=== PATIENT | male | born 1965 | race Caucasian/White ===

== ENCOUNTER 2024-06-14 09:56 | Emergency (ER) | payer SELFPAY ==
--- NOTE | 2024-06-14 10:32 | ED Physician Documentation ---
PD HPI ABD PAIN - Stated complaint Stated Complaint: LT FLANK PX - Chief complaint Chief Complaint: Abd Pain - History obtained from History obtained from: Patient - History of Present Illness Timing - onset: How many months ago (pt with 2 abd symptoms, one for 2-3 months in upper abd/epigastric area. The outher left mid abd insce yeserday that feels c/w diverticulitis to him.) Timing - details: Gradual onset, Still present, Waxing and waning Quality: Cramping, Aching, Pain Associated symptoms: Nausea, Constipation. No: Fever, Vomiting, Diarrhea PD PAST MEDICAL HISTORY - Past Medical History GI: Ulcers, Diverticulitis : Kidney stones - Past Surgical History Past Surgical History: Yes HEENT: Tonsil/Adenoidectomy - Present Medications Home Medications: Ambulatory Orders Medication Instructions Recorded Confirmed Amox/Clav 875/125 [Augmentin] 1 each PO Q12H #14 tablet 06/14/24 Lansoprazole [Prevacid] 30 mg PO DAILY 06/14/24 06/14/24 Sucralfate [Carafate] 1 gm PO ACHS 7 Days #280 ml 06/14/24 - Allergies Allergies/Adverse Reactions: Allergies Allergy/AdvReac Type Severity Reaction Status Date / Time Iodinated Contrast Media Allergy Unknown Verified 06/14/24 10:11 - Social History Does the pt smoke?: No Smoking Status: Never smoker Does the pt drink ETOH?: No Does the pt have substance abuse?: No PD ED PE NORMAL - General General: Alert and oriented X 3, No acute distress (not with degree of pain, but he very anxious about having dverituclitis again after dozenyears. ), Well developed/nourished - Neck Neck: Supple, no meningeal sign, No adenopathy - Cardiac Cardiac: RRR, No murmur - Respiratory Respiratory: No respiratory distress, Clear bilaterally - Abdomen Abdomen: Normal bowel sounds, Soft, Non distended, No organomegaly, Other (carrie with minimal guarding left abd. No tenderness in epigastric area. ) Results - Vitals Vitals: Vital Signs - 24 hr 06/14/24 06/14/24 06/14/24 10:05 12:15 14:00 Temperature 36.6 C Heart Rate 112 H 85 81 Respiratory 16 16 16 Rate Blood Pressure 163/97 H 153/82 H 143/96 H O2 Saturation 99 98 98 Oxygen O2 Source Room air - Labs Labs: Laboratory Tests 06/14/24 06/14/24 06/14/24 11:15 11:15 12:23 WBC 13.6 H RBC 5.26 Hgb 16.2 Hct 48.5 MCV 92.2 MCH 30.8 MCHC 33.4 RDW 12.7 Plt Count 271 MPV 11.5 H Neut # (Auto) 11.5 H Lymph # (Auto) 1.1 L Bibb # (Auto) 0.9 Eos # (Auto) 0.0 Baso # (Auto) 0.0 Absolute Nucleated RBC 0.00 Nucleated RBC % 0.0 Sodium 137 Potassium 3.9 Chloride 101 Carbon Dioxide 25 Anion Gap 11.0 BUN 9 Creatinine 0.7 Estimated GFR (MDRD) 116 Glucose 122 H Calcium 9.6 Total Bilirubin 1.2 H AST 11 ALT 13 Alkaline Phosphatase 113 Total Protein 7.1 Albumin 4.7 Globulin 2.4 Albumin/Globulin Ratio 2.0 Lipase < 10 L Urine Color DARK YELLOW Urine Clarity CLEAR Urine pH 6.5 Ur Specific [place] 1.010 Urine Protein NEGATIVE Urine Glucose (UA) NEGATIVE Urine Ketones >=80 H Urine Occult Blood NEGATIVE Urine Nitrite NEGATIVE Urine Bilirubin SMALL H Urine Urobilinogen 0.2 (NORMAL) Ur Leukocyte Esterase NEGATIVE Ur Microscopic Review NOT INDICATED Urine Culture Comments NOT INDICATED - Rads (name of study) abd/pelvic CT Relevant Findings:: Prelim report reviewed (acute uncomplicated diverticulitits descending colon. ), EMP independent interpretation of test PD Medical Decision Making - ED course Complexity details: reviewed results (has left abd pain c/w diverticulitis, but had not had it for 10 years. But the upper/epigastric area discomfort for months is different and sounds gastritis/ulcer like. Given duration, consider h.pylori as possible and can get sllot test. Blood tests no longer recommeded. ), considered differential (current left abd pain c/w his prior diverticulitis. Does not have peritoneal signs on exam. Upper abd pain for 2-3 months, and mproved with Pepcid the past week. ), d/w patient Departure - Departure Disposition: 01 Home, Self Care Clinical Impression: Upper abdominal pain, Left sided abdominal pain, Acute diverticulitis Condition: Stable Record reviewed to determine appropriate education?: Yes Prescriptions: Amox/Clav 875/125 [Augmentin] 1 each PO Q12H #14 tablet Sucralfate [Carafate] 1 gm PO ACHS 7 Days #280 ml Comments: Continue with the Prevacid. I would add a medication to coat the stomach several times daily as your symptoms sound likely gastritis or ulcer. This is called sacral fate and I wrote a prescription. Antacids if needed as well. Given the duration of the symptoms, I would be wondering about a infection in the stomach lining called Helicobacter pylori. This is tested for in a stool test. I wrote a prescription note for that. You could bring the stool sample to the one of the walk-in clinics or such to drop out the lab. In addition your left-sided pain acutely now is uncomplicated diverticulitis. [place] food to initially and mostly liquid diet for a day or 2. Augmentin twice daily for a week. Add Tylenol 500 to 650 mg 4 times daily if needed for pains. Follow-up if not improved well over the next several days to week or so. I sent your prescription to [facility] pharmacy. Forms: PCP List Discharge Date/Time: 06/14/24 14:25
[2024-06-14] MEDS ORDERED: iohexoL-300 100 ML VIAL ONE (11:10)
[2024-06-14 11:19] LABS: BASOPHILS % (AUTO) 0.1 %; EOSINOPHILS % (AUTO) 0.1 %; HCT - HEMATOCRIT 48.5 % (42.0-52.0); HGB - HEMOGLOBIN 16.2 g/dL (14.0-18.0); LYMPHOCYTES # (AUTO) 1.1 10^3/uL (1.5-3.5); MEAN CORPUSCULAR HEMOGLOBIN 30.8 pg (27.0-31.0); MEAN CORPUSCULAR HGB CONC 33.4 g/dL (32.0-36.0); MEAN CORPUSCULAR VOLUME 92.2 fL (80.0-94.0); MEAN PLATELET VOLUME 11.5 fL (7.4-11.4); MONOCYTES # (AUTO) 0.9 10^3/uL (0.0-1.0); MONOCYTES % (AUTO) 6.8 %; NEUTROPHILS # (AUTO) 11.5 10^3/uL (1.5-6.6); NEUTROPHILS % (AUTO) 84.8 %; PLT - PLATELET COUNT 271 10^3/uL (130-450); RED BLOOD COUNT 5.26 10^6/uL (4.70-6.10); RED CELL DISTRIBUTION WIDTH 12.7 % (12.0-15.0); WHITE BLOOD COUNT 13.6 x10^3/uL (4.8-10.8)
[2024-06-14] MEDS: KETOROLAC 15 MG/ML VIAL IVP STA (11:23)
[2024-06-14] MEDS: SODIUM CHLORIDE 0.9% 1,000 ML IV STA (11:23)
[2024-06-14 11:34] LABS: ALBUMIN 4.7 g/dL (3.2-5.5); ALKALINE PHOSPHATASE 113 IU/L (42-121); ALT ALANINE AMINOTRANSFERASE 13 IU/L (10-60); AST ASPARTATE AMINOTRANSFERASE 11 IU/L (10-42); BILIRUBIN,TOTAL 1.2 mg/dL (0.2-1.0); BUN - BLOOD UREA NITROGEN 9 mg/dL (6-20); CALCIUM 9.6 mg/dL (8.5-10.3); CARBON DIOXIDE - CO2 25 mmol/L (21-32); CHLORIDE 101 mmol/L (101-111); CREATININE 0.7 mg/dL (0.6-1.3); GFR - MDRD 116 (>89); GLUCOSE 122 mg/dL (74-104); LIPASE < 10 U/L (11-82); POTASSIUM 3.9 mmol/L (3.5-4.5); SODIUM 137 mmol/L (135-145); TOTAL PROTEIN 7.1 g/dL (6.4-8.9)
[2024-06-14 12:29] VITALS: O2SAT 98
[2024-06-14 12:34] LABS: BILIRUBIN,URINE SMALL (NEGATIVE); CLARITY,URINE CLEAR (CLEAR); GLUCOSE, URINE (UA) NEGATIVE (NEGATIVE); KETONES,URINE (UA) >=80 mg/dL (NEGATIVE); LEUKOCYTE ESTERASE, URINE NEGATIVE (NEGATIVE); NITRITE,URINE NEGATIVE (NEGATIVE); OCCULT BLOOD,URINE NEGATIVE (NEGATIVE); PH,URINE 6.5 PH (5.0-7.5); PROTEIN,URINE NEGATIVE (NEGATIVE); UROBILINOGEN,URINE 0.2 (NORMAL) E.U./dL (NORMAL)
--- NOTE | 2024-06-14 12:58 | CT Report ---
PROCEDURE: Abdomen/Pelvis WO INDICATIONS: LLQ Abdominal pain, diverticulitis suspected TECHNIQUE: A CT scan of the abdomen and pelvis was performed without the use of intravenous contrast. Images we re recorded and evaluated at appropriate window settings. Reformats: coronal and sagittal. For radiat ion dose reduction, the following was used: automated exposure control, adjustment of mA and/or kV ac cording to patient size. COMPARISON: None. FINDINGS: Image quality: Diagnostic. Lower chest: Unremarkable. Liver: No contour-deforming mass. Gallbladder: Biliary tree: No intrahepatic or extrahepatic dilation, accounting for age. Spleen: No splenomegaly. Pancreas: No pancreatic ductal dilation. Adrenals: No adrenal nodule. Kidneys and ureters: No hydronephrosis. No contour-deforming mass. Stomach, bowel and peritoneum: No gastric or small bowel dilation. No abnormal wall thickening. No pa thologic free fluid. Diverticulosis with acute diverticulitis involving the mid descending colon with out free air or free fluid or abscess cavity. Inflammatory change in the adjacent fat. Lymph nodes: No central or retroperitoneal adenopathy. Vessels: No infrarenal aortic aneurysm. Reproductive organs: Mild prostatomegaly. Bladder: Bladder wall thickness is normal, accounting for underdistention. No calcified bladder stone s. Pelvic lymph nodes: No adenopathy by size criteria. Bones: No aggressive osseous abnormality. Other: Bilateral somewhat prominent fat-containing inguinal hernias.. IMPRESSION: 1. Acute uncomplicated diverticulitis of the mid descending colon. Prominent bilateral fat-containing inguinal hernias. Reviewed by: Jacky Messina MD on 06/14/2024 12:57 PM PDT Approved by: Jacky Messina MD on 06/14/2024 12:57 PM PDT Station ID: [id number]
[2024-06-14] MEDS: AMOX/CLAV 875 MG/125 MG TABLET PO STA (13:58)
[2024-06-14] MEDS: ACETAMINOPHEN 500 MG TABLET PO STA (14:04)
[2024-06-14 14:22] VITALS: BP 143/96
== END 2024-06-14 14:25 | disposition home or self-care (01) ==
LOC: ED 09:56
DX: K57.32 Diverticulitis of large intestine without perforation or abscess without bleeding (principal); R10.10 Upper abdominal pain, unspecified
CPT/HCPCS: 36415; 74176; 80053; 81003; 83690; 85025; 96374; 99284; A9270; 81001; 87086; 87338